=== PATIENT | female | born 1945 | race Caucasian/White ===

== ENCOUNTER → 2020-07-09 | Outpatient (CLI) | payer MEDICARE, BC ==
[~2020-07-09] MED LIST: AUGMENTIN 875-1 EACH PO; FLAGYL500 MG PO
== END ==
LOC: RT 13:38
DX: Z01.810 Encounter for preprocedural cardiovascular examination (principal)
CPT/HCPCS: 93005

== ENCOUNTER → 2020-09-09 | Outpatient (CLI) | payer MEDICARE, BC | LOC: CT 08:10 | DX: R10.11 Right upper quadrant pain (principal) | CPT/HCPCS: 36415; 74160; 82565; Q9963 ==

== ENCOUNTER → 2021-03-28 | Outpatient (CLI) | payer MEDICARE, BC | LOC: KOH-I 15:44 | DX: J01.01 Acute recurrent maxillary sinusitis (principal); R91.8 Other nonspecific abnormal finding of lung field | CPT/HCPCS: 70486 ==

== ENCOUNTER → 2021-04-30 | Outpatient (CLI) | payer MEDICARE, BC ==
[~2021-04-30] MED LIST changes: +DICYCLOMINE HCL10 MG PO; +MOBIC7.5 MG PO; +OMEPRAZOLE40 MG PO
[2021-04-30 11:49] LABS: HEMOGLOBIN 14.4 gm/dl (12.3-15.3); RED BLOOD COUNT 4.75 M/UL (4.00-5.10); WHITE BLOOD COUNT 6.3 K/UL (4.5-11.0)
== END ==
LOC: OPSV2 10:30
PROVIDERS: Obstetrics & Gynecology
DX: Z01.812 Encounter for preprocedural laboratory examination (principal); N81.6 Rectocele
CPT/HCPCS: 36415; 81001; 85025

== ENCOUNTER 2021-05-07 05:33 | Day surgery (SDC) | payer MEDICARE, BC ==
[~2021-05-07] VITALS: Ht 162.6 cm; Wt 66.7 kg
[2021-05-07] MEDS ORDERED: NAPROSYN500 MG PO (09:29)
[2021-05-07] MEDS ORDERED: HYDROCODON-ACE1 EAC2 PO (09:29)
[2021-05-07] MEDS ORDERED: POLYETHYLENE G500 G3 MC (09:29)
[2021-05-08 07:18] LABS: HEMOGLOBIN 12.7 gm/dl (12.3-15.3)
== END 2021-05-08 14:20 | disposition home or self-care (01) ==
LOC: OR 05:33 → MED SURG 4 13:18 → OR 05-08 14:20
PROVIDERS: Obstetrics & Gynecology
DX: N81.2 Incomplete uterovaginal prolapse (principal); D25.1 Intramural leiomyoma of uterus; N81.82 Incompetence or weakening of pubocervical tissue; N39.3 Stress incontinence (female) (male); N72 Inflammatory disease of cervix uteri; N80.0 Endometriosis of uterus; N84.0 Polyp of corpus uteri; N36.41 Hypermobility of urethra; E78.00 Pure hypercholesterolemia, unspecified; Z23 Encounter for immunization; Z79.899 Other long term (current) drug therapy
CPT/HCPCS: 36415; 71045; 85014; 85018; 93005; C1769; C1771; J0690; J1170; J2001; J2405; J2704; J2710; J2795; J3010; J7120

== ENCOUNTER → 2021-07-24 | Outpatient (CLI) | payer MEDICARE, BC ==
[~2021-07-24] MED LIST changes: +HYDROCODON-ACE1 EAC2 PO; +NAPROSYN500 MG PO; +POLYETHYLENE G500 G3 MC
== END ==
LOC: KOH-I 11:14
DX: M51.16 Intervertebral disc disorders with radiculopathy, lumbar region (principal)
CPT/HCPCS: 72100

== ENCOUNTER 2021-09-30 09:37 | Inpatient (IN) | payer MEDICARE, BC ==
[~2021-09-30] VITALS: Ht 162.6 cm; Wt 52.0 kg
[2021-09-30 10:10] LABS: HEMOGLOBIN 14.3 gm/dl (12.3-15.3); RED BLOOD COUNT 4.82 M/UL (4.00-5.10); WHITE BLOOD COUNT 8.1 K/UL (4.5-11.0)
[2021-09-30] MEDS ORDERED: SUCRALFATE1 GM/10 ML PO (12:24)
[2021-09-30] MEDS ORDERED: BUDESONIDE0.5 MG/2 M INH (12:24)
[2021-09-30] MEDS ORDERED: FLONASE 0.05% N16 GM (12:25)
[2021-09-30] MEDS ORDERED: ARTHRITIS PAIN150 GM TOP (12:25)
--- NOTE | 2021-09-30 19:00 | NUR ---
REPORT RECEIVED. CARE RESUMED. ASSESSMENT PREVIOUSLY CHARTED. C/O RIGHT ARM DISCOMFORT FROM PREVIOUSLY IV INFILTRATION. WARM COMPRESS APPLIED. IVF NS @ 100 ML/HR DECREASED TO 50 ML/HR ORDERED . ENCOURAGED TO CALL FOR ASSIST OR REPORT ANY PAIN . VERBALIZED UNDERSTANDING.
[2021-09-30 22:03] LABS: HEMOGLOBIN 12.8 gm/dl (12.3-15.3); RED BLOOD COUNT 4.34 M/UL (4.00-5.10)
[2021-09-30 22:09] LABS: WHITE BLOOD COUNT 12.7 K/UL (4.5-11.0)
[2021-09-30 22:15] LABS: BUN/CREATININE RATIO 28 (0-10)
--- NOTE | 2021-10-01 06:16 | NUR ---
C/O EPIGASTIC DISCOMFORT. STATES SHE HAD BEEN SEEN AT [facility] AND TEST WERE PERFORMED AND AWAITING RESULTS FOR SIMILAR ISSUE. WHEN ASKED HOW TO DESCRIBE DISCOMFORT SHE RESPONDED THAT IT WASNT THE USUAL PAIN AND WASNT EXACTLY THE CHEST PAIN EXPERIENCED WITH STEMI ON 09/30/21. SHE ASK IF SHE COULD POSSIBLY BE EXPERIENCING ANOTHER MS. COMFORT GIVEN ,STAT EKG OBTAINED. DR MERCEDES NOTIFIED . WILL CONTINUE TO MONITOR . NO NEW ORDERS AT THIS TIME.
[2021-10-02 05:44] LABS: RED BLOOD COUNT 3.73 M/UL (4.00-5.10); WHITE BLOOD COUNT 8.1 K/UL (4.5-11.0)
[2021-10-03] MEDS ORDERED: BACTRIM 400-801 EACH PO (09:14)
== END 2021-10-03 16:25 | disposition home or self-care (01) | DRG 246 ==
LOC: ER1 09:37 → CCU 11:24 → CDU 11:24 → CCU 13:46 → M/S 10-02 14:47
PROVIDERS: Emergency Medicine; Physician Assistant; ADMIT Internal Medicine Interventional Cardiology
PROC: 4A023N7 Measurement of Cardiac Sampling and Pressure, Left Heart, Percutaneous Approach (ICD-10-PCS; principal; 2021-09-30)
PROC: 027034Z Dilation of Coronary Artery, One Artery with Drug-eluting Intraluminal Device, Percutaneous Approach (ICD-10-PCS; 2021-09-30)
PROC: B2151ZZ Fluoroscopy of Left Heart using Low Osmolar Contrast (ICD-10-PCS; 2021-09-30)
PROC: B2111ZZ Fluoroscopy of Multiple Coronary Arteries using Low Osmolar Contrast (ICD-10-PCS; 2021-09-30)
PROC: B24BZZZ Ultrasonography of Heart with Aorta (ICD-10-PCS; 2021-09-30)
DX: I21.09 ST elevation (STEMI) myocardial infarction involving other coronary artery of anterior wall (principal); A41.59 Other Gram-negative sepsis; N30.00 Acute cystitis without hematuria; I42.9 Cardiomyopathy, unspecified; I97.630 Postprocedural hematoma of a circulatory system organ or structure following a cardiac catheterization; Z20.822 Contact with and (suspected) exposure to COVID-19; E78.5 Hyperlipidemia, unspecified; K21.9 Gastro-esophageal reflux disease without esophagitis; R10.13 Epigastric pain; I10 Essential (primary) hypertension; R11.0 Nausea; Z90.710 Acquired absence of both cervix and uterus; Z82.49 Family history of ischemic heart disease and other diseases of the circulatory system; Z79.899 Other long term (current) drug therapy; Z79.01 Long term (current) use of anticoagulants; Z88.5 Allergy status to narcotic agent; Z80.0 Family history of malignant neoplasm of digestive organs; Z79.82 Long term (current) use of aspirin; Z91.048 Other nonmedicinal substance allergy status
CPT/HCPCS: ECHO; 36415; 71045; 80048; 80053; 80061; 80202; 81001; 82550; 82553; 83036; 83605; 83735; 83880; 84484; 85025; 85027; 85347; 85610; 85730; 87040; 87077; 87086; 87186; 93005; 93306; 93971; 99152; 99153; 99285; C1725; C1769; C1874; C1887; C9113; J0461; J1170; J1644; J2250; J2270; J2370; J2405; J2543; J3246; J3370; J7040; J7070; Q9965; U0002

== ENCOUNTER → 2021-12-09 | Outpatient (CLI) | payer MEDICARE, BC ==
[~2021-12-09] MED LIST changes: +ARTHRITIS PAIN150 GM TOP; +BACTRIM 400-801 EACH PO; +BUDESONIDE0.5 MG/2 M INH; +FLONASE 0.05% N16 GM; +SUCRALFATE1 GM/10 ML PO
== END ==
LOC: KOH-I 12:54
DX: R06.02 Shortness of breath (principal); R91.8 Other nonspecific abnormal finding of lung field
CPT/HCPCS: 71046

== ENCOUNTER 2021-12-18 09:45 | Emergency (ER) | payer MEDICARE, BC ==
[2021-12-18 10:52] LABS: HEMOGLOBIN 13.8 gm/dl (12.3-15.3); RED BLOOD COUNT 4.82 M/UL (4.00-5.10); WHITE BLOOD COUNT 7.7 K/UL (4.5-11.0)
== END 2021-12-18 12:33 | disposition home or self-care (01) ==
LOC: ER1 09:45
PROVIDERS: Nurse Practitioner
DX: N93.9 Abnormal uterine and vaginal bleeding, unspecified (principal); Z95.5 Presence of coronary angioplasty implant and graft; Z79.82 Long term (current) use of aspirin
CPT/HCPCS: 80053; 81001; 85025; 85610; 85730; 87086; 99284

== ENCOUNTER → 2022-01-12 | Outpatient (CLI) | payer MEDICARE, BC | LOC: KOH-I 10:00 | DX: J32.9 Chronic sinusitis, unspecified (principal) | CPT/HCPCS: 70486 ==

== ENCOUNTER → 2022-01-22 | Outpatient (CLI) | payer MEDICARE, BC | LOC: HEART 5 11:12 | DX: I25.10 Atherosclerotic heart disease of native coronary artery without angina pectoris (principal); I25.2 Old myocardial infarction | CPT/HCPCS: 93306 ==

== ENCOUNTER → 2022-02-20 | Outpatient (CLI) | payer MEDICARE, BC | LOC: EXRD 10:10 | DX: R06.02 Shortness of breath (principal) | CPT/HCPCS: 71046 ==